=== PATIENT | male | born 1970 | race Caucasian/White ===

== ENCOUNTER 2017-08-14 20:22 | Emergency (ER) | payer OTHER ==
[~2017-08-14] VITALS: Ht 185.4 cm; Wt 81.2 kg
[~2017-08-14 20:22] MED LIST: BUPR300T52 PO
[2017-08-14] MEDS ORDERED: ESCITALOPRAM 20 MG TABLET (21:02)
--- NOTE | 2017-08-14 21:45 | NUR ---
Dr. Frost at bedside for MSE.
[2017-08-14] MEDS ORDERED: HYDROCODONE/APAP 5-325MG TABLET ONE (22:15)
[2017-08-14] MEDS: HYDROCODONE/APAP 5-325MG TABLET PO ONE (22:18)
--- NOTE | 2017-08-14 23:00 | NUR ---
Patient discharged to home in stable conditon. Written and verbal after care instructions given. Patient verbalizes understanding of instructions. Patient provided with crutches and ambulation training, VSS, no acute signs of distress.
[2017-08-14 23:24] VITALS: BP 129/53
== END 2017-08-14 23:10 | disposition home or self-care (01) ==
LOC: ER 20:25
DX: S92.201A Fracture of unspecified tarsal bone(s) of right foot, initial encounter for closed fracture (principal); F12.10 Cannabis abuse, uncomplicated; Z90.49 Acquired absence of other specified parts of digestive tract; Z79.899 Other long term (current) drug therapy; W22.8XXA Striking against or struck by other objects, initial encounter; Y93.89 Activity, other specified; Y92.89 Other specified places as the place of occurrence of the external cause; Y99.8 Other external cause status
CPT/HCPCS: 73630; A4663